=== PATIENT | male | born 1985 | race Two or more races ===

== ENCOUNTER 2024-01-29 12:37 | Inpatient (IN) ==
[2024-01-29] MEDS: NS 0.9% 1000 ml BAG 1,000 ML IV ONE (13:45)
[2024-01-29] MEDS: Iohexol 300 (CONTRAST) 10 ML SDV IV ONE (16:51)
[2024-01-29] MEDS ORDERED: Ondansetron 4 mg VIAL 2 MG/ML 2 ml VIAL IV PRN (17:39)
[2024-01-29] MEDS: Lactated Ringers 1000 ml BAG 1,000 ML IV ONE (17:44)
[2024-01-29] MEDS: Ondansetron 4 mg VIAL 2 MG/ML 2 ml VIAL IV ONE (17:44)
[2024-01-29] MEDS: Ciprofloxacin 400mg IVPREMIX 400 MG/200 ML BAG IVPB ONE (17:46)
[2024-01-29] MEDS: metroNIDAZOLE IV 500 MG/100ML 500 MG/100 ML BAG IVPB ONE (18:55)
[2024-01-29] MEDS: metroNIDAZOLE IV 500 MG/100ML 500 MG/100 ML BAG IVPB SCH (19:44)
[2024-01-29] MEDS: NS 0.9% 1000 ml BAG 1,000 ML IV SCH (20:26)
[2024-01-30] MEDS: metroNIDAZOLE IV 500 MG/100ML 500 MG/100 ML BAG IVPB SCH (01:35)
[2024-01-30 06:30] LABS: ABS Basophils 0.1 10^3/uL (0.0-0.1); ABS Eosinophils 0.1 10^3/uL (0.0-0.5); ABS Lymphocytes 1.8 10^3/uL (1.0-4.8); ABS Neutrophils 6.3 10^3/uL (1.5-7.6); ABS Nucleated RBC 0.01 10^3/ul; Eosinophil % 0.9 %; Hematocrit 39.3 % (38-53); Hemoglobin 14.2 g/dL (13.2-16.3); Lymphocyte % 19.6 %; Mean Corpuscular Hemoglobin 30.7 pg (27-33); Mean Corpuscular Hgb Conc 36.2 g/dL (31-36); Mean Corpuscular Volume 84.9 fL (80-97); Mean Platelet Volume 7.1 fL (7.5-11.2); Nucleated Red Blood Cells % 0.1 %/100WBC (0.0-0.8); Platelet Count 273 10^3/uL (150-450); Red Blood Count 4.63 10^6/uL (4.06-5.63); Red Cell Distribution Width 12.7 % (12-17); White Blood Count 9.3 10^3/uL (3.6-10.2)
[2024-01-30 06:49] LABS: Calcium 8.5 mg/dL (8.6-10.3); Creatinine, Serum 0.85 mg/dL (0.67-1.17); HDL Cholesterol 31.7 mg/dL; Potassium 3.9 mmol/L (3.5-5.0); eGFR CKD-EPI 112.7 (>60)
[2024-01-30] MEDS: cefTRIAXone 1 gm/50 mL D5W 1 GM/50 ML BAG IV SCH (09:44)
[2024-01-31 10:27] VITALS: BP 131/90
== END 2024-01-31 12:50 | disposition home or self-care (01) | DRG 244 ==
LOC: ED 12:37 → EDHOLD 12:37 → SUATTDRO 17:39 → MED 19:48
PROVIDERS: ADMIT Internal Medicine; ATTEND Hospitalist